=== PATIENT | female | born 1950 | race Two or more races ===

== ENCOUNTER 2020-12-05 11:09 | Emergency (ER) | payer OTHER ==
[~2020-12-05] VITALS: Ht 157.5 cm; Wt 63.5 kg
[2020-12-05] MEDS ORDERED: METFORMIN HCL500 M3 (11:22)
[2020-12-05] MEDS ORDERED: KETO10TA2 PO (14:09)
[2020-12-05] MEDS ORDERED: NORFLEX100MG PO (14:09)
== END 2020-12-05 14:16 | disposition home or self-care (01) ==
LOC: ER 11:09
DX: G89.11 Acute pain due to trauma (principal); M25.561 Pain in right knee